=== PATIENT | male | born 1985 | race Caucasian/White ===

== ENCOUNTER 2016-09-22 08:22 | Emergency (ER) | payer SELFPAY ==
[~2016-09-22] VITALS: Ht 157.5 cm; Wt 103.1 kg
[2016-09-22 08:25] VITALS: Ht 157.5 cm; Wt 103.1 kg
[2016-09-22 09:07] LABS: ADD SCAN DIFF NO
[2016-09-22 09:11] LABS: BASOPHIL # 0.1 10^3/ul (0.0-0.1); BASOPHILS % 0.5 % (0.0-2.0); EOSINOPHILS # 0.1 10^3/ul (0.0-0.5); EOSINOPHILS % 0.8 % (0.0-7.0); HEMOGLOBIN 10.5 g/dl (14.0-18.0); LYMPHOCYTES # 1.8 10^3/ul (0.8-2.9); LYMPHOCYTES % 13.4 % (15.0-51.0); MEAN CORPUSCULAR HEMOGLOBIN 21.8 pg (29.0-33.0); MEAN CORPUSCULAR HGB CONC 29.2 g/dl (32.0-37.0); MEAN CORPUSCULAR VOLUME 74.7 fl (82.0-101.0); MEAN PLATELET VOLUME 9.3 fl (7.4-10.4); MONOCYTE # 1.2 10^3/ul (0.3-0.9); MONOCYTES % 9.3 % (0.0-11.0); NEUTROPHIL # 9.9 10^3/ul (1.6-7.5); NEUTROPHILS % 75.4 % (39.0-77.0); PLATELET COUNT 330 10^3/UL (140-415); RED BLOOD COUNT 4.82 10^6/ul (4.70-6.10); RED CELL DISTRIBUTION WIDTH 18.2 % (11.5-14.5); WHITE BLOOD COUNT 13.2 10^3/ul (4.8-10.8)
[2016-09-22 09:17] LABS: ADD UMIC YES; UR ASCORBIC ACID NEGATIVE (NEGATIVE); UR BILIRUBIN (Dip) NEGATIVE (NEGATIVE); UR BLOOD (Dip) 1+ mg/dL (NEGATIVE); UR CLARITY SLIGHTLY CLOUDY (CLEAR); UR COLOR AMBER (YELLOW); UR GLUCOSE (Dip) NEGATIVE (NEGATIVE); UR KETONES (Dip) NEGATIVE (NEGATIVE); UR LEUKOCYTE ESTERASE (Dip) NEGATIVE Leu/ul (NEGATIVE); UR MUCUS FEW /HPF (NONE SEEN); UR NITRITE (Dip) NEGATIVE (NEGATIVE); UR RBC 10 /HPF (0-5); UR SPECIFIC GRAVITY (Dip) 1.028 (1.003-1.030); UR TOTAL PROTEIN (Dip) 1+ mg/dl (NEGATIVE); UR UROBILINOGEN (Dip) NEGATIVE (NEGATIVE)
[2016-09-22 09:26] LABS: ALBUMIN 4.8 g/dl (3.3-4.9); ALBUMIN/GLOBULIN RATIO 1.37; BILIRUBIN,INDIRECT 0.7 mg/dl (0-1.1); BILIRUBIN,TOTAL 0.7 mg/dl (0.2-1.3); CALCIUM 9.2 mg/dl (8.4-10.2); CREATININE 0.68 mg/dl (0.61-1.24); POTASSIUM 3.9 mmol/L (3.5-5.1); TOTAL PROTEIN 8.3 g/dl (6.1-8.1)
--- NOTE | 2016-09-22 09:48 | RADRPT ---
PROCEDURE: XR Left Hand. CLINICAL INDICATION: Pain following injury TECHNIQUE: 3 views of the left hand were obtained. COMPARISON: No prior studies are available for comparison. FINDINGS: The osseous structures demonstrate normal alignment and mineralization. No acute fracture or disloc ation is identified. The joint spaces are well preserved. There is a questionable small marginal e rosion along the distal ulnar margin of the fourth proximal phalanx. There is soft tissue edema robb rounding the fourth PIP joint. IMPRESSION: Soft tissue edema surrounding the left fourth PIP joint. There is a questionable, small marginal er osion along the distal ulnar aspect of the fourth proximal phalanx. Clinical correlation for inflam matory arthropathy is recommended. RPTAT: HH .Nataly Chawla MD, MD Date Time Electronically viewed and signed by .Nataly Chawla MD, on 09/22/2016 09:48 .G/
--- NOTE | 2016-09-22 10:07 | RADRPT ---
PROCEDURE: CT Abdomen and Pelvis without contrast. CLINICAL INDICATION: Lower abdominal pain. TECHNIQUE: Routine axial tomographic images of the abdomen and pelvis were obtained from the domes the diaphragm to the symphysis pubis. The patient was scanned withoutoral or intravenous contrast. Coronal and sagittal reformatted images were obtained from the axial source images. Images were re viewed on a high-resolution PACS workstation. The total exam CTDI equals 21.69 mGy and the total exa m DLP equals 1041.67 mGy-cm. One or more of the following dose reduction techniques were used: Aut omated exposure control, adjustment of the mA and / or kV according to patient size, or use of itera tive reconstruction technique. COMPARISON: None. FINDINGS: The visualized portions of the lung bases are clear. Evaluation of the intra-abdominal solid or anup is somewhat limited on this noncontrast examination. The liver appears normal in size. The antony er parenchyma demonstrates diffuse hypoattenuation. There is no intra or extrahepatic biliary dilata tion. The gallbladder is unremarkable by CT criteria. The spleen, pancreas, and adrenal glands are unremarkable. The kidneys are symmetric in size. No renal, ureteral, or bladder calculi are identified. No perine phric inflammatory changes are identified. The urinary bladder is grossly unremarkable. There is a moderate hiatal hernia. There is no evidence of bowel obstruction. The appendix is jim l in appearance. Diverticula are seen throughout the sigmoid colon. There is mucosal thickening and pericolonic fat stranding along the midsigmoid colon. There is a 1.6 x 1.6 cm collection of air al phillip the anti mesenteric margin of the sigmoid. The pelvic organs are grossly unremarkable. No intr aperitoneal free fluid, free air, or abscess is identified. No retroperitoneal, mesenteric, or ingui nal lymphadenopathy is identified. The aorta is normal in caliber. The osseous structures are unremarkable. No significant subcutaneous soft tissue abnormalities are seen. IMPRESSION: 1. Sigmoid diverticulitis. There is a 1.6 x 1.6 cm air-filled collection along the anti mesenteric margin of the sigmoid, suspicious for a contained perforation. No intraperitoneal free air or absc ess is seen. 2. Hepatic steatosis. 3. Moderate hiatal hernia. Findings were discussed with SHAVON Cano on 09/22/2016 10:06:17 AM. RPTAT: HH .Nataly Chawla MD, MD Date Time Electronically viewed and signed by .Nataly Chawla MD, MD on 09/22/2016 10:06 .G/
[2016-09-22] MEDS ORDERED: METR500T PO (10:43)
[2016-09-22] MEDS ORDERED: ONDA4TAB14 PO (10:43)
[2016-09-22] MEDS ORDERED: CIPR500T4 PO (10:43)
[2016-09-22] MEDS ORDERED: DOCU-144 PO (10:43)
[2016-09-22] MEDS ORDERED: HYDR-906 PO (10:43)
[2016-09-22 11:17] VITALS: BP 128/67; PULSE 77; RESP 18
--- NOTE | 2016-09-22 11:56 | ERD ---
ER Documentation Chief Complaint Date/Time DATE: 09/22/16 TIME: 11:46 Chief Complaint Complains of abdominal pain x 3 days HPI 31-year-old male patient with no significant past medical history presents to the ED complaining of lower abdominal pain that started 3 days ago. Describes the pain as achy and rates it a 8 out of 10. States his last bowel movement was yesterday. Denies any nausea, vomiting, diarrhea. Denies any fever, chills , chest pain, shortness of breath. Denies any constipation. Patient also reports that he was playing soccer with his son 1 week ago and accidentally fell onto his left hand. Reports he is right-handed. States that his left fourth finger is painful. Denies any loss of sensation, loss of range of motion , weakness, numbness or tingling. ROS All systems reviewed and are negative except as per history of present illness. Medications Home Meds Active Scripts Docusate Sodium* (Colace*) 100 Mg Capsule, 100 MG PO TID, #30 CAP Prov:NISHI SAEED PA-C 09/22/16 Ondansetron (Ondansetron Odt) 4 Mg Tab.rapdis, 4 MG PO Q6H Y for NAUSEA AND/OR VOMITING, #10 TAB Prov:NISHI SAEED PA-C 09/22/16 Hydrocodone/Acetaminophen (Denton 5-325 Tablet) 1 Each Tablet, 1 TAB PO Q6H Y for PAIN, #14 TAB Prov:NISHI SAEED PA-C 09/22/16 Metronidazole* (Flagyl*) 500 Mg Tablet, 500 MG PO TID for 10 Days, TAB Prov:NISHI SAEED PA-C 09/22/16 Ciprofloxacin Hcl* (Ciprofloxacin Hcl*) 500 Mg Tablet, 500 MG PO BID for 10 Days , TAB Prov:NISHI SAEED PA-C 09/22/16 Allergies Allergies: Coded Allergies: No Known Allergy (Unverified , 09/22/16) PMhx/Soc Medical and Surgical Hx: pt denies Medical Hx, pt denies Surgical Hx Hx Alcohol Use: Yes Hx Substance Use: No Hx Tobacco Use: No Physical Exam Vitals Vital Signs Date Time Temp Pulse Resp B/P Pulse Ox O2 Delivery O2 Flow Rate FiO2 09/22/16 11:17 77 18 128/67 99 Room Air 09/22/16 08:25 99.6 87 20 134/81 99 Physical Exam Const: Jeu-usi-vyrkhmloi, well-nourished. In no acute distress. Head: Atraumatic, normocephalic Eyes: Normal Conjunctiva without injection. No purulent discharge. PERRLA. EOMI ENT: Normal external ear. Ear canal without erythema. Tympanic membrane pearly craig without effusion or bulging. Nasal canal clear with normal turbinates. Moist oropharynx without tonsillar exudates. Non-erythematous pharynx. Uvula midline. No drooling. No trismus. Neck: No cervical midline tenderness. Full range of motion. No meningismus. No cervical lymphadenopathy. No JVD. Resp: Clear to auscultation bilaterally. No wheezing, rhonchi, rales, or crackles. No accessory muscle use. No retractions. Cardio: Regular rate and rhythm. No murmurs, rubs or gallops. Abd: Soft, tender to palpation of the right and left lower quadrants, non distended. Normal bowel sounds. No palpable masses. No rebound tenderness. No guarding. Negative McBurney's Point. Negative Jeronimo's Sign. Skin: Normal skin turgor. No petechiae or rashes Back: No midline tenderness. No CVA tenderness. Ext: No cyanosis, or edema. Distal pulses intact bilaterally. Neur: Awake and alert. Normal gait. Normal coordination. Cranial Nerves II- VII intact. Normal finger to nose. Muscle strength 5/5. Sensation intact. Psych: Normal Mood and Affect Results 24 hrs Laboratory Tests Test 09/22/16 08:55 White Blood Count 13.210^3/ul Red Blood Count 4.8210^6/ul Hemoglobin 10.5g/dl Hematocrit 36.0% Mean Corpuscular Volume 74.7fl Mean Corpuscular Hemoglobin 21.8pg Mean Corpuscular Hemoglobin Concent 29.2g/dl Red Cell Distribution Width 18.2% Platelet Count 15069^3/UL Mean Platelet Volume 9.3fl Neutrophils % 75.4% Lymphocytes % 13.4% Monocytes % 9.3% Eosinophils % 0.8% Basophils % 0.5% Nucleated Red Blood Cells % 0.0/100WBC Neutrophils # 9.910^3/ul Lymphocytes # 1.810^3/ul Monocytes # 1.210^3/ul Eosinophils # 0.110^3/ul Basophils # 0.110^3/ul Nucleated Red Blood Cells # 0.010^3/ul Urine Color IVETH Urine Clarity SLIGHTLY CLOUDY Urine pH 5.0 Urine Specific [place] 1.028 Urine Ketones NEGATIVEmg/dL Urine Nitrite NEGATIVEmg/dL Urine Bilirubin NEGATIVEmg/dL Urine Urobilinogen NEGATIVEmg/dL Urine Leukocyte Esterase NEGATIVELeu/ul Urine Microscopic RBC 10/HPF Urine Microscopic WBC 1/HPF Urine Mucus FEW/HPF Urine Hemoglobin 1+mg/dL Urine Glucose NEGATIVEmg/dL Urine Total Protein 1+mg/dl Sodium Level 137mmol/L Potassium Level 3.9mmol/L Chloride Level 103mmol/L Carbon Dioxide Level 26mmol/L Anion Gap 12 Blood Urea Nitrogen 8mg/dl Creatinine 0.68mg/dl Glucose Level 111mg/dl Calcium Level 9.2mg/dl Total Bilirubin 0.7mg/dl Direct Bilirubin 0.00mg/dl Indirect Bilirubin 0.7mg/dl Aspartate Amino Transf (AST/SGOT) 39IU/L Alanine Aminotransferase (ALT/SGPT) 53IU/L Alkaline Phosphatase 104IU/L Total Protein 8.3g/dl Albumin 4.8g/dl Globulin 3.50g/dl Albumin/Globulin Ratio 1.37 Lipase 37U/L Procedures/MDM 31-year-old male patient with no significant past medical history presents to the ED complaining of abdominal pain that started 3 days ago as well as a left fourth finger injury sustained 1 week ago. Patient is afebrile and nontoxic- appearing. Patient has normal vital signs. Patient was further worked up with CBC, CMP, lipase, UA, CT the abdomen and pelvis without contrast. Patient denied wanting any pain medications. CBC: Leukocytosis of 13.2. No e/o anemia. CMP: No e/o severe acidosis, alkalosis, renal failure, diabetic ketoacidosis, liver disease Lipase within normal limits. Urine: No leukocyte esterase, no nitrites, no hematuria. PROCEDURE: CT Abdomen and Pelvis without contrast. CLINICAL INDICATION: Lower abdominal pain. TECHNIQUE: Routine axial tomographic images of the abdomen and pelvis were obtained from the domes the diaphragm to the symphysis pubis. The patient was scanned withoutoral or intravenous contrast. Coronal and sagittal reformatted images were obtained from the axial source images. Images were reviewed on a high-resolution PACS workstation. The total exam CTDI equals 21.69 mGy and the total exam DLP equals 1041.67 mGy-cm. One or more of the following dose reduction techniques were used: Automated exposure control, adjustment of the mA and / or kV according to patient size, or use of iterative reconstruction technique. COMPARISON: None. FINDINGS: The visualized portions of the lung bases are clear. Evaluation of the intra-abdominal solid organs is somewhat limited on this noncontrast examination. The liver appears normal in size. The liver parenchyma demonstrates diffuse hypoattenuation. There is no intra or extrahepatic biliary dilatation. The gallbladder is unremarkable by CT criteria. The spleen, pancreas, and adrenal glands are unremarkable. The kidneys are symmetric in size. No renal, ureteral, or bladder calculi are identified. No perinephric inflammatory changes are identified. The urinary bladder is grossly unremarkable. There is a moderate hiatal hernia. There is no evidence of bowel obstruction. The appendix is normal in appearance. Diverticula are seen throughout the sigmoid colon. There is mucosal thickening and pericolonic fat stranding along the midsigmoid colon. There is a 1.6 x 1.6 cm collection of air along the anti mesenteric margin of the sigmoid. The pelvic organs are grossly unremarkable. No intraperitoneal free fluid, free air, or abscess is identified. No retroperitoneal, mesenteric, or inguinal lymphadenopathy is identified. The aorta is normal in caliber. The osseous structures are unremarkable. No significant subcutaneous soft tissue abnormalities are seen. IMPRESSION: 1. Sigmoid diverticulitis. There is a 1.6 x 1.6 cm air-filled collection along the anti mesenteric margin of the sigmoid, suspicious for a contained perforation. No intraperitoneal free air or abscess is seen. 2. Hepatic steatosis. 3. Moderate hiatal hernia. Findings were discussed with SHAVON Cano on 09/22/2016 10:06:17 AM. PROCEDURE: XR Left Hand. CLINICAL INDICATION: Pain following injury TECHNIQUE: 3 views of the left hand were obtained. COMPARISON: No prior studies are available for comparison. FINDINGS: The osseous structures demonstrate normal alignment and mineralization. No acute fracture or dislocation is identified. The joint spaces are well preserved. There is a questionable small marginal erosion along the distal ulnar margin of the fourth proximal phalanx. There is soft tissue edema surrounding the fourth PIP joint. IMPRESSION: Soft tissue edema surrounding the left fourth PIP joint. There is a questionable, small marginal erosion along the distal ulnar aspect of the fourth proximal phalanx. Clinical correlation for inflammatory arthropathy is recommended. Patient has diverticulitis is noted on the CT. No abscess or free fluid noted. Low suspicion for gastritis, GERD, peptic ulcer disease, cholecystitis, choledocholithiasis, cholangitis, pancreatitis, appendicitis, bowel obstruction , ileus, volvulus, nephrolithiasis, pyelonephritis, hepatitis, perforated viscus , abdominal hernia, acute abdomen, mesenteric ischemia or other emergent conditions. Patient is placed in a left 4th finger splint for questionable small marginal erosion along the distal ulnar aspect of fourth proximal phalanx. Splint Assessment: Neurovascularly intact pre and post splint placement with good fit. Patient may have a small questionable marginal erosion along the distal ulnar margin of the fourth proximal phalanx. Patient's extremity symptoms have stabilized while they have been evaluated in the department and are appropriate for outpatient follow up. No evidence of fractures, dislocations, compartment syndrome, neurologic injury, vascular injury, open joint, open fracture, tendon laceration, septic arthritis, osteomyelitis, DVT, foreign body, or other emergent conditions. This case was discussed with my supervising physician, Dr. Cavazos who agreed with the management and discharge plan. Discharge medications: Denton, Ciprofloxacin, Metronidazole, Colace, Zofran Follow up with primary care physician in 1-2 days for referral to medical social consultant and orthopedic physician. Instructed patient to return to the ED sooner for any worsening symptoms. Patient's questions were answered. Patient understood and agreed with discharge plan. Patient discharged stable. Departure Diagnosis: Primary Impression: Sigmoid diverticulitis Additional Impressions: Finger injury Encounter type: initial encounter Laterality: left Qualified Code: S69.92XA - Finger injury, left, initial encounter Hiatal hernia Condition: Stable Patient Instructions: Understanding Diverticulosis and Diverticulitis, What Is a Hiatal Hernia?, Diverticulitis, Fracture, Finger (Closed) Referrals: COMMUNITY CLINICS YOU HAVE RECEIVED A MEDICAL SCREENING EXAM AND THE RESULTS INDICATE THAT YOU DO NOT HAVE A CONDITION THAT REQUIRES URGENT TREATMENT IN THE EMERGENCY DEPARTMENT. FURTHER EVALUATION AND TREATMENT OF YOUR CONDITION CAN WAIT UNTIL YOU ARE SEEN IN YOUR DOCTORS OFFICE WITHIN THE NEXT 1-2 DAYS. IT IS YOUR RESPONSIBILITY TO MAKE AN APPOINTMENT FOR FOLOW-UP CARE. IF YOU HAVE A PRIMARY DOCTOR --you should call your primary doctor and schedule an appointment IF YOU DO NOT HAVE A PRIMARY DOCTOR YOU CAN CALL OUR PHYSICIAN REFERRAL HOTLINE AT IF YOU CAN NOT AFFORD TO SEE A PHYSICIAN YOU CAN CHOSE FROM THE FOLLOWING [facility] [address] [facility] [address] [facility] [address] [facility] [address] [facility] [address] [facility]. [facility] [address] [facility] YOU HAVE RECEIVED A MEDICAL SCREENING EXAM AND THE RESULTS INDICATE THAT YOU DO NOT HAVE A CONDITION THAT REQUIRES URGENT TREATMENT IN THE EMERGENCY DEPARTMENT. FURTHER EVALUATION AND TREATMENT OF YOUR CONDITION CAN WAIT UNTIL YOU ARE SEEN IN YOUR DOCTORS OFFICE WITHIN THE NEXT 1-2 DAYS. IT IS YOUR RESPONSIBILITY TO MAKE AN APPOINTMENT FOR FOLOW-UP CARE. IF YOU HAVE A PRIMARY DOCTOR --you should call your primary doctor and schedule and appointment IF YOU DO NOT HAVE A PRIMARY DOCTOR YOU CAN CALL OUR PHYSICIAN REFERRAL HOTLINE AT . IF YOU CAN NOT AFFORD TO SEE A PHYSICIAN YOU CAN CHOSE FROM THE FOLLOWING [facility] INSTITUTIONS: [facility] [address] [place] [address] [facility] [address] [place] [address] [facility] [address] [place] [address] [facility] Urgent Care 7 a.m.- 11 p.m. Every Day of the Week NO APPOINTMENT OR AUTHORIZATION NEEDED SO [facility] Hours: Mon-Fri 9:00 AM - 5:00 PM Additional Instructions: La medicina que se le recet puede causarle sueo.NO DEBE MANEJAR NI OPERAR MAQUINARIAS PELIGROSAS mientras esta tomando esta medicina! No flores alcohol mientras est tomando Metronidazole y otras mediaciones Visite a salomon mdico maana para un EXAMEN para un referido a un gastroenterlogo y orthopedico.Regrese a estas instalaciones si no se mejora yolanda esperbamos o yolanda le dijimos - fiebre, vmitos, diarrea, dolor abdominal de empeoramiento. NISHI SAEED PA-C Sep 22, 2016 11:55 NISHI SAEED PA-C Sep 22, 2016 11:55
== END 2016-09-22 11:18 | disposition home or self-care (01) ==
LOC: FTE 08:22
DX: K57.32 Diverticulitis of large intestine without perforation or abscess without bleeding (principal); S69.92XA Unspecified injury of left wrist, hand and finger(s), initial encounter; K44.9 Diaphragmatic hernia without obstruction or gangrene; W18.39XA Other fall on same level, initial encounter; Y92.9 Unspecified place or not applicable
CPT/HCPCS: 36415; 74176; 80053; 81001; 83690; 85025